=== PATIENT | female | born 1955 | race African-American/Black ===

== ENCOUNTER → 2019-08-11 | Outpatient (CLI) | payer OTHER ==
[~2019-08-11] MED LIST: AMLO-337 MT; ASPI-1497 MT; ATOR40TA70 MT; CARV25TA47 MT; GLIP10TA10 MT; GLIP5TAB12 MT; METF-416 PO; QUIN1TAB25 MT
== END | disposition home or self-care (01) ==
LOC: LAB 08:02
PROVIDERS: ATTEND Ophthalmology
DX: Z11.59 Encounter for screening for other viral diseases (principal)
CPT/HCPCS: U0003-CS

== ENCOUNTER 2019-08-15 10:57 | Day surgery (SDC) | payer OTHER ==
[~2019-08-15] VITALS: Ht 166.4 cm; Wt 115.7 kg
[~2019-08-15 10:57] MED LIST changes: -AMLO-337 MT; -ASPI-1497 MT; -ATOR40TA70 MT; -CARV25TA47 MT; +CYCLOPENTOLATE HCL 1% OPHTH DROPS 2ML LEFTEYE ONE; -GLIP10TA10 MT; +LACTATED RINGERS 1,000 ML IV SCH; +PHENYLEPHRINE HCL 10% OPHTH DROPS 5ML RIGHTEYE ONE; -QUIN1TAB25 MT; +TROPICAMIDE 1% OPHTH DROPS 15ML RIGHTEYE ONE
[2019-08-15] MEDS ORDERED: PREDNISOLONE ACETATE 1% OPHTH DROPS 5ML ONE (11:17)
[2019-08-15] MEDS ORDERED: LIDOCAINE HCL/PF 2% 20 MG/ML 10ML VIAL ONE (11:17)
[2019-08-15] MEDS ORDERED: CYCLOPENTOLATE HCL 1% OPHTH DROPS 2ML ONE (11:17)
[2019-08-15] MEDS ORDERED: CIPROFLOXACIN 0.3% OPHTH SOLN 2.5ML ONE (11:17)
[2019-08-15] MEDS ORDERED: TETRACAINE 0.5% OPHTH DROPS 4ML ONE (11:17)
[2019-08-15] MEDS ORDERED: TROPICAMIDE 1% OPHTH DROPS 15ML ONE (11:17)
[2019-08-15] MEDS ORDERED: PHENYLEPHRINE HCL 10% OPHTH DROPS 5ML ONE (11:17)
[2019-08-15] MEDS ORDERED: HYALURONATE SODIUM 10 MG/ML 0.55ML SYRINGE IO ONE ×2 (12:17→12:52)
[2019-08-15] MEDS ORDERED: MIDAZOLAM HCL 2 MG/2 ML VIAL ONE (12:34)
[2019-08-15] MEDS ORDERED: FENTANYL CITRATE/PF 50MCG/ML 2ML VIAL ONE (12:34)
[2019-08-15] MEDS ORDERED: MEPERIDINE HCL/PF 25MG/ML CPJ IV PRN (13:00)
[2019-08-15] MEDS ORDERED: HYDROMORPHONE HCL/PF 2MG/ML CPJ IV PRN (13:00)
[2019-08-15] MEDS ORDERED: ONDANSETRON HCL 4MG/2ML INJ IV PRN (13:00)
[2019-08-15] MEDS ORDERED: LABETALOL 5MG/ML SYR 20 MG/4 ML SYRINGE IV PRN (13:00)
[2019-08-15] MEDS ORDERED: ASPI-1497 MT (13:20)
[2019-08-15] MEDS ORDERED: AMLO-337 MT (13:20)
[2019-08-15] MEDS ORDERED: ATOR40TA70 MT (13:20)
[2019-08-15] MEDS ORDERED: CARV25TA47 MT (13:20)
[2019-08-15] MEDS ORDERED: GLIP10TA10 MT (13:20)
[2019-08-15] MEDS ORDERED: QUIN1TAB25 MT (13:20)
[2019-08-15] MEDS ORDERED: BALANCED SALT IRRIG SOLN COMB1 500ML OP ONE (13:30)
== END 2019-08-15 14:45 | disposition home or self-care (01) ==
LOC: OR 10:57
PROVIDERS: ATTEND Ophthalmology
DX: E11.36 Type 2 diabetes mellitus with diabetic cataract (principal); H25.89 Other age-related cataract; I10 Essential (primary) hypertension; E78.00 Pure hypercholesterolemia, unspecified; Z79.899 Other long term (current) drug therapy; Z98.890 Other specified postprocedural states; Z90.710 Acquired absence of both cervix and uterus; Z79.82 Long term (current) use of aspirin; Z88.8 Allergy status to other drugs, medicaments and biological substances
CPT/HCPCS: 66984; 82962; J2250; J3010; J3490; V2632

== ENCOUNTER → 2019-10-13 | Outpatient (CLI) | payer OTHER ==
[~2019-10-13] MED LIST changes: +AMLO-337 MT; +ASPI-1497 MT; +ATOR40TA70 MT; +CARV25TA47 MT; -CYCLOPENTOLATE HCL 1% OPHTH DROPS 2ML LEFTEYE ONE; +GLIP10TA10 MT; -GLIP5TAB12 MT; -LACTATED RINGERS 1,000 ML IV SCH; -PHENYLEPHRINE HCL 10% OPHTH DROPS 5ML RIGHTEYE ONE; +QUIN1TAB25 MT; -TROPICAMIDE 1% OPHTH DROPS 15ML RIGHTEYE ONE
== END | disposition home or self-care (01) ==
LOC: LAB 08:00
PROVIDERS: ATTEND Ophthalmology
DX: Z01.818 Encounter for other preprocedural examination (principal); Z11.59 Encounter for screening for other viral diseases
CPT/HCPCS: C9803; U0003

== ENCOUNTER 2019-10-17 08:45 | Day surgery (SDC) | payer OTHER ==
[~2019-10-17] VITALS: Ht 165.1 cm; Wt 117.9 kg
[~2019-10-17 08:45] MED LIST changes: +BALANCED SALT IRRIG SOLN COMB1 500ML OP ONE; +CYCLOPENTOLATE HCL 1% OPHTH DROPS 2ML LEFTEYE ONE; +PHENYLEPHRINE HCL 10% OPHTH DROPS 5ML LEFTEYE ONE; +SODIUM CHLORIDE 0.9% 1,000 ML IV SCH; +TROPICAMIDE 1% OPHTH DROPS 15ML LEFTEYE ONE
[2019-10-17] MEDS ORDERED: BALANCED SALT IRRIG SOLN 15ML ONE (09:42)
[2019-10-17] MEDS ORDERED: TETRACAINE 0.5% OPHTH DROPS 4ML ONE (09:42)
[2019-10-17] MEDS ORDERED: PREDNISOLONE ACETATE 1% OPHTH DROPS 5ML ONE (09:42)
[2019-10-17] MEDS ORDERED: CIPROFLOXACIN 0.3% OPHTH SOLN 2.5ML ONE (09:42)
[2019-10-17] MEDS ORDERED: NEO/POLYMYX B SULF/DEXAMETH OPHTH OINT 3.5GM ONE (09:42)
[2019-10-17] MEDS ORDERED: TROPICAMIDE 1% OPHTH DROPS 15ML ONE (09:42)
[2019-10-17] MEDS ORDERED: CYCLOPENTOLATE HCL 1% OPHTH DROPS 2ML ONE (09:42)
[2019-10-17] MEDS ORDERED: PHENYLEPHRINE HCL 10% OPHTH DROPS 5ML ONE (09:42)
[2019-10-17] MEDS ORDERED: LIDOCAINE HCL 2%/EPINEPHRINE 1:100,000 20 ML VIAL INFIL ONE (09:42)
[2019-10-17] MEDS ORDERED: INSULIN REGULAR (HUMULIN R) 300UNITS/3ML SUBCUT ONE (10:02)
[2019-10-17] MEDS ORDERED: INSULIN REGULAR (HUMULIN R) 300UNITS/3ML ONE (10:03)
[2019-10-17] MEDS ORDERED: INSULIN REGULAR (HUMULIN R) 300UNITS/3ML SUBCUT SCH (10:15)
[2019-10-17] MEDS ORDERED: HYALURONATE SODIUM 10 MG/ML 0.55ML SYRINGE IO ONE (10:55)
== END 2019-10-17 13:45 | disposition home or self-care (01) ==
LOC: OR 08:45
PROVIDERS: ATTEND Ophthalmology
DX: E11.36 Type 2 diabetes mellitus with diabetic cataract (principal); H25.89 Other age-related cataract; I10 Essential (primary) hypertension; E78.00 Pure hypercholesterolemia, unspecified; Z79.82 Long term (current) use of aspirin; Z79.84 Long term (current) use of oral hypoglycemic drugs; Z79.899 Other long term (current) drug therapy; Z98.890 Other specified postprocedural states
CPT/HCPCS: 66984; 82962; 93005; J1815; J3490; V2632